=== PATIENT | male | born 1945 | race Caucasian/White ===

== ENCOUNTER → 2017-09-16 08:32 | Outpatient (CLI) | payer MEDICARE, OTHER, SELFPAY ==
--- NOTE | 2017-09-16 | DI.RAD.S_ITS ---
PROCEDURE: XR KNEE RT 3V INDICATIONS: PAIN IN RIGHT KNEES TECHNIQUE: 3 views of the knee were acquired. COMPARISON: None. FINDINGS: Bones: No fractures or dislocations. No suspicious bony lesions. Right knee arthroplasty is present. Hardware is intact without fracture or loosening. Soft tissues: Trace joint effusion. No suspicious soft tissue calcifications. IMPRESSION: No acute osseous abnormality. Short interval imaging followup is recommended if clinical concern persists. Dictated by: Renee Odonnell M.D. on 09/16/2017 at 9:43 Approved by: Renee Odonnell M.D. on 09/16/2017 at 9:45
== END ==
PROVIDERS: Family Provider Internal Medicine; PCP Internal Medicine; Visit Provider Student in an Organized Health Care Education/Training Program
DX: M25.561 Pain in right knee (principal)
CPT/HCPCS: 73562

== ENCOUNTER → 2018-01-30 08:24 | Outpatient (CLI) | payer MEDICARE, OTHER, SELFPAY ==
[2018-01-30 09:24] LABS: Add Manual Diff / Slide Review NO; Basophils Percent Auto 0.4 % (0-2); Eosinophils Percent Auto 2.9 % (2-4); Hemoglobin 15.9 g/dL (13.5-17.5); Lymphocytes Percent Auto 15.8 % (25-40); Mean Corpuscular HGB Conc 33.9 % (30-36); Mean Corpuscular Hemoglobin 31.2 PG (26-34); Mean Corpuscular Volume 91.9 fL (80-100); Neutrophils Absolute Auto 4200 /uL (3000-5900); Neutrophils Percent Auto 71.9 % (50-75); Platelet Count 242 X10^3/uL (150-400); Red Blood Cell Count 5.11 X10^6/uL (4.5-5.9); Red Cell Distribution Width 12.5 % (11.6-14.8); White Blood Cell Count 5.9 X10^3/uL (4.5-11.0)
[2018-01-30 09:53] LABS: Alanine Aminotransferase 32 IU/L (21-72); Albumin 4.2 g/dL (3.5-5.0); Albumin Globulin Ratio 1.6 (1.0-2.8); Alkaline Phosphatase 71 U/L (38-126); Aspartate Aminotransferase 26 IU/L (17-59); Bilirubin Total 0.7 mg/dL (0.2-1.3); Blood Urea Nitrogen 15 mg/dL (9-20); Calcium 9.3 mg/dL (8.4-10.2); Carbon Dioxide 30 mmol/L (22-32); Chloride 104 mmol/L (98-107); Cholesterol 143 mg/dL (140-199); Estimated Glomerular Filt Rate > 60.0 mL/min (>60); Globulin 2.6 g/dL (1.7-4.1); Glucose 84 mg/dL (80-110); HDL Cholesterol 41 mg/dL (40-60); HEMOLYSIS < 15 (0-50); LDL Cholesterol Calculated 81 mg/dL (<100); Potassium 4.6 mmol/L (3.4-5.1); Sodium 144 mmol/L (137-145); Total Protein 6.8 g/dL (6.3-8.2); Triglycerides 105 mg/dL (35-150)
[2018-01-30 10:23] LABS: Prostate Specific Antigen Scrn 1.96 ng/mL (0.1-4.0)
== END ==
PROVIDERS: Family Provider Internal Medicine; PCP Internal Medicine; Visit Provider Internal Medicine
DX: Z00.00 Encounter for general adult medical examination without abnormal findings (principal); I10 Essential (primary) hypertension; E78.00 Pure hypercholesterolemia, unspecified
CPT/HCPCS: 36415; 80053; 80061; 85025; G0103

== ENCOUNTER → 2018-02-02 12:22 | Outpatient (CLI) | payer MEDICARE, OTHER, SELFPAY ==
--- NOTE | 2018-02-02 | DI.ECHO.S_ITS ---
[facility]---------+ [facility] +---------+ : : [address] : : : : [id number] : : : : Phone: [phone]+ Echocardiogram Report + + :Name: CECE DAMON Study Date: 02/02/2018 Height: 71 in : :[facility] Exam Location: [facility] Weight: 200 lb : : Gender: Male BSA: 2.1 m2 : :: 1945 Age: 72 yrs BP: 142/70 mmHg: :Reason For Study: MURMUR : : Performed By: Lukasz Umanzor : :Referring: BRIAN GONZALEZ : + + Interpretation Summary The left ventricle is normal in size. Left ventricular systolic function is normal without focal wall motion abnormalities. The ejection fraction is estimated to be 65-70%. Diastolic parameters suggest a relaxation abnormality of the left ventricle, consistent with probable normal filling pressures. The right ventricle is normal in size and function. The right ventricular systolic pressure is estimated to be at least 19 mmHg based on an estimated right atrial pressure of 3 mm Hg. The left atrium is moderately dilated. The right atrium is mildly dilated. There is moderate aortic stenosis. The peak aortic velocity is 3.64 m/sec. The calculated aortic valve area is 1.5 cm2. There is mild aortic regurgitation. There is no other significant valvular heart disease. The ascending aorta is mildly enlarged. Procedure: A two-dimensional transthoracic echocardiogram with color flow and Doppler was performed. The study quality was technically adequate. There is no prior echocardiogram noted for this patient. The patient was in normal sinus rhythm during the exam. Left Ventricle: The left ventricle is normal in size. Left ventricular wall thickness is mildly increased. Left ventricular systolic function is normal without focal wall motion abnormalities. The ejection fraction is estimated to be 65-70%. Diastolic parameters suggest a relaxation abnormality of the left ventricle, consistent with probable normal filling pressures. Right Ventricle: The right ventricle is normal in size and function. Atria: The left atrium is moderately dilated. The right atrium is mildly dilated. The interatrial septum is intact with no evidence for an atrial septal defect. Mitral Valve: The mitral valve is normal in structure and function. There is trace mitral regurgitation. Aortic Valve: The aortic valve is trileaflet. The aortic valve is moderately calcified. Leaflet mobility is mild to moderately reduced. There is moderate aortic stenosis. The peak aortic velocity is 3.64 m/sec. The aortic valve mean gradient is 33.2 mmHg. The calculated aortic valve area is 1.5 cm2. There is mild aortic regurgitation. Tricuspid Valve: The tricuspid valve is normal in structure and function. There is trace tricuspid regurgitation. The right ventricular systolic pressure is estimated to be at least 19 mmHg based on an estimated right atrial pressure of 3 mm Hg. Pulmonic Valve: The pulmonic valve is normal in structure and function. There is trace pulmonic regurgitation. There is no other significant valvular heart disease. Great Vessels: The aortic root is normal size. The ascending aorta is mildly enlarged. The aortic arch is normal in size. The pulmonary artery is normal size. The IVC is of normal diameter and collapses greater than 50% with a sniff. This suggests a low right atrial pressure of 3 mm Hg. Pericardium/ Pleura There is no pericardial effusion. There is no pleural effusion. MMode/2D Measurements & Calculations LVIDd: 4.8 cm LVOT diam: 2.2 cm LVIDs: 2.7 cm Ao root diam: 3.2 cm FS: 43.0 % Aortic Jxn: 2.4 cm EPSS: 0.20 cm asc Aorta Diam: 3.5 cm IVSd: 0.99 cm Ao Arch Diam (Prox Trans): 3.2 cm LVPWd: 1.2 cm LV goins. diameter/BSA (cm/m^2): 2.3 LV sys. diameter/BSA (cm/m^2): 1.3 LA dimension: 3.7 cm RA long axis: 5.2 cm LA A2 area: 26.1 cm2 RA area: 21.0 cm2 LA A4 area: 24.6 cm2 RA vol: 71.8 ml LA length (vol): 6.0 cm RA : 34.1 ml/m2 LA vol: 90.2 ml IVC diam: 1.9 cm LA vol index: 42.8 ml/m2 THOMAS (plan): 1.8 cm2 Doppler Measurements & Calculations Ao V2 max: 364.2 cm/sec LVOT Max Silvano: 130.9 cm/sec Ao V2 mean: 276.2 cm/sec LV V1 max P.9 mmHg Ao max P.0 mmHg LV V1 VTI: 32.0 cm Ao mean P.2 mmHg THOMAS(I,D): 1.5 cm2 Ao V2 VTI: 83.7 cm THOMAS(V,D): 1.4 cm2 sev ratio: 0.38 THOMAS indexed to BSA (cm^2/m^2): 0.70 MV E max silvano: 74.1 cm/sec TR max silvano: 200.7 cm/sec MV A max silvano: 87.3 cm/sec TR max P.1 mmHg MV E/A: 0.85 PA V2 max: 99.9 cm/sec Med Peak E' Silvano: 5.9 cm/sec PA V2 mean: 74.1 cm/sec E/E' med: 12.6 PA mean P.4 mmHg Lat Peak E' Silvano: 7.5 cm/sec PA pr(Accel): 31.6 mmHg E/E' lat: 9.8 PA Accel Time: 0.10 sec E/e' average: 11.2 MV dec time: 0.19 sec Pulm A Revs Silvano: 24.6 cm/sec Reading Physician:TAD
== END ==
PROVIDERS: Family Provider Internal Medicine; PCP Internal Medicine; Visit Provider Internal Medicine
DX: I35.2 Nonrheumatic aortic (valve) stenosis with insufficiency (principal); R01.1 Cardiac murmur, unspecified
CPT/HCPCS: 93306

== ENCOUNTER → 2018-03-08 10:32 | Outpatient (CLI) | payer MEDICARE, OTHER, SELFPAY ==
--- NOTE | 2018-03-09 12:05 | P.PCN_ITS ---
Cardiac Stress Test Report Referral & Results Date Patient Seen: 03/09/18 Requesting provider: Julio Vega Indication: Abnormal standard treadmill Rest ECG: Unremarkable Procedure Note: After both written and verbal informed consent the patient had an IV started by the diagnostic imaging RN and then was hooked up to the treadmill monitoring system. The patient was placed on the treadmill at 1 mile an hour with no elevation and was then injected with the Lin scan material. The Cardiolite was then immediately administered. The patient spent an additional 2-3 minutes on the treadmill before being returned to the [facility] in the supine position. Impression: Number response to infuse materials Please see perfusion imaging for details regarding possible ischemia Please note: Actual ECG tracings can be found in the PACS system.
--- NOTE | 2018-03-09 12:41 | DI.NM.S_ITS ---
DATE OF SERVICE: 03/08/2018 PROCEDURE: Pharmacological perfusion study. INDICATION: Exertional angina, abnormal exercise stress test, hypertension, hyperlipidemia, history of moderate aortic stenosis. RADIOPHARMACEUTICAL: 26.0 mCi technetium-99m Myoview IV was injected at stress, and 27.4 mCi technetium-99m Myoview IV was injected at rest. CARDIAC STRESS: Patient underwent IV Lexiscan perfusion study under the supervision of an attending staff. Patient remained hemodynamically stable. No significant symptoms. Baseline EKG revealed sinus rhythm. Stress EKG did not reveal any obvious inducible ischemic changes. No significant arrhythmias. RAW DATA: There was increased subdiaphragmatic activity. GATED STUDY: Resting LV ejection fraction 73%. Stress LV ejection fraction 71%. There appears to be hypokinesis involving inferior wall. During stress, TID ratio 1.01, which is within normal limits. Resting end-diastolic volume is 113 mL. Lung/heart ratio is 0.30, which is within normal limits. Patient's weight is 201 pounds. MYOCARDIAL PERFUSION SCAN: Stress supine, resting supine, and stress prone images were compared to each other. The resting supine images revealed small-to - moderate-sized mildly decreased perfusion of base-to-mid inferior wall. During stress supine and stress prone images, there was significant worsening of perfusion defect in the inferior wall as well as basal inferolateral wall. CONCLUSION: This is an abnormal myocardial perfusion study consistent with mjhtq-du-rjkcrayz-sized mild infarction of base-to-mid inferior wall with significant shy-infarct ischemia as well as ischemia extending into the distal inferior wall and basal inferolateral segment. Conveyed report to Dr. Angela who is covering Dr. Vega. Consider left heart catheterization. Parth Guaman - [employer]/fn/kv doc#: [id number]/job#: [id number] dd: 03/09/2018 12:29:00 dt: 03/09/2018 12:34:00 DICTATING /COPIES TO: Puja Martinez MD COPIES MNE: MAURA
== END ==
PROVIDERS: PCP Internal Medicine; Visit Provider Internal Medicine
DX: I25.89 Other forms of chronic ischemic heart disease (principal); I20.8 Other forms of angina pectoris; I35.0 Nonrheumatic aortic (valve) stenosis; R07.9 Chest pain, unspecified; I10 Essential (primary) hypertension; E78.5 Hyperlipidemia, unspecified; R94.39 Abnormal result of other cardiovascular function study
CPT/HCPCS: 78452; 93016; 93017; 93018; A9502; J2785

== ENCOUNTER → 2018-05-10 15:37 | Outpatient (CLI) | payer MEDICARE, OTHER, SELFPAY ==
[2018-05-10 16:58] LABS: Alanine Aminotransferase 35 IU/L (21-72); Albumin 4.2 g/dL (3.5-5.0); Albumin Globulin Ratio 1.6 (1.0-2.8); Alkaline Phosphatase 73 U/L (38-126); Aspartate Aminotransferase 27 IU/L (17-59); BUN Creatinine Ratio 19.1 (6-22); Bilirubin Total 0.3 mg/dL (0.2-1.3); Blood Urea Nitrogen 21 mg/dL (9-20); Calcium 9.5 mg/dL (8.4-10.2); Carbon Dioxide 25 mmol/L (22-32); Chloride 107 mmol/L (98-107); Estimated Glomerular Filt Rate > 60.0 mL/min (>60); Globulin 2.7 g/dL (1.7-4.1); Glucose 99 mg/dL (80-110); HEMOLYSIS < 15 (0-50); Potassium 4.7 mmol/L (3.4-5.1); Sodium 140 mmol/L (137-145); Total Protein 6.9 g/dL (6.3-8.2)
== END ==
PROVIDERS: PCP Internal Medicine; Visit Provider Nurse Practitioner
DX: R60.0 Localized edema (principal)
CPT/HCPCS: 36415; 80053

== ENCOUNTER 2018-07-16 14:00 | Outpatient (RCR) | payer MEDICARE, OTHER, SELFPAY | END 2018-07-24 07:26 | disposition home or self-care (01) | LOC: CAR 14:00 | PROVIDERS: PCP Internal Medicine; Visit Provider Internal Medicine | DX: Z95.1 Presence of aortocoronary bypass graft (principal) | CPT/HCPCS: 93798 ==

== ENCOUNTER → 2019-03-29 09:36 | Outpatient (CLI) | payer MEDICARE, OTHER, SELFPAY ==
[2019-03-29 12:33] LABS: Add Manual Diff / Slide Review NO; Basophils Absolute Auto 0 /uL (0-100); Basophils Percent Auto 0.5 % (0-2); Eosinophils Absolute Auto 300 /uL (0-450); Eosinophils Percent Auto 4.8 % (2-4); Hemoglobin 15.4 g/dL (13.5-17.5); Lymphocytes Absolute Auto 1100 /uL (1100-4500); Lymphocytes Percent Auto 17.2 % (25-40); Mean Corpuscular HGB Conc 34.2 % (30-36); Mean Corpuscular Hemoglobin 31.8 PG (26-34); Mean Corpuscular Volume 92.8 fL (80-100); Monocytes Absolute Auto 600 /uL (0-900); Monocytes Percent Auto 8.9 % (3-14); Neutrophils Absolute Auto 4400 /uL (1500-7000); Neutrophils Percent Auto 68.6 % (50-75); Platelet Count 220 X10^3/uL (150-400); Red Blood Cell Count 4.85 X10^6/uL (4.5-5.9); Red Cell Distribution Width 13.4 % (11.6-14.8); White Blood Cell Count 6.4 X10^3/uL (4.5-11.0)
[2019-03-29 13:33] LABS: Alanine Aminotransferase 47 IU/L (<50); Albumin 4.4 g/dL (3.5-5.0); Albumin Globulin Ratio 1.6 (1.0-2.8); Alkaline Phosphatase 78 U/L (38-126); Aspartate Aminotransferase 36 IU/L (17-59); Bilirubin Total 0.8 mg/dL (0.2-1.3); Blood Urea Nitrogen 16 mg/dL (9-20); Calcium 9.6 mg/dL (8.4-10.2); Carbon Dioxide 26 mmol/L (22-32); Chloride 105 mmol/L (98-107); Cholesterol 167 mg/dL (140-199); Estimated Glomerular Filt Rate > 60.0 mL/min (>60); Globulin 2.7 g/dL (1.7-4.1); Glucose 90 mg/dL (80-110); HDL Cholesterol 40 mg/dL (40-60); HEMOLYSIS < 15 (0-50); LDL Cholesterol Calculated 92 mg/dL (<100); Potassium 4.4 mmol/L (3.4-5.1); Sodium 141 mmol/L (137-145); Total Protein 7.1 g/dL (6.3-8.2); Triglycerides 177 mg/dL (35-150)
== END ==
PROVIDERS: PCP Internal Medicine; Visit Provider Internal Medicine
DX: N40.1 Benign prostatic hyperplasia with lower urinary tract symptoms (principal); I25.10 Atherosclerotic heart disease of native coronary artery without angina pectoris; E78.2 Mixed hyperlipidemia
CPT/HCPCS: 36415; 80053; 80061; 85025

== ENCOUNTER → 2019-10-17 07:45 | Outpatient (CLI) | payer MEDICARE, OTHER, SELFPAY ==
[2019-10-17 08:33] LABS: BUN Creatinine Ratio 14.4 (6-22); Blood Urea Nitrogen 15 mg/dL (9-20); Calcium 9.6 mg/dL (8.4-10.2); Carbon Dioxide 28 mmol/L (22-32); Chloride 107 mmol/L (98-107); Estimated Glomerular Filt Rate > 60.0 mL/min (>60); Glucose 94 mg/dL (80-110); HEMOLYSIS < 15 (0-50); Potassium 4.3 mmol/L (3.4-5.1); Sodium 139 mmol/L (137-145)
== END ==
PROVIDERS: PCP Internal Medicine; Referring Provider Internal Medicine; Visit Provider Internal Medicine
DX: I10 Essential (primary) hypertension (principal)
CPT/HCPCS: 36415; 80048

== ENCOUNTER → 2019-11-19 09:00 | Outpatient (CLI) | payer MEDICARE, OTHER, SELFPAY ==
[2019-11-19 10:25] LABS: Cholesterol 100 mg/dL (140-199); HDL Cholesterol 30 mg/dL (40-60); LDL Cholesterol Calculated 57 mg/dL (<100); Triglycerides 65 mg/dL (35-150)
== END ==
PROVIDERS: PCP Internal Medicine; Referring Provider Internal Medicine Cardiovascular Disease; Visit Provider Internal Medicine Cardiovascular Disease
DX: E78.5 Hyperlipidemia, unspecified (principal)
CPT/HCPCS: 36415; 80061

== ENCOUNTER → 2020-03-27 15:59 | Outpatient (CLI) | payer MEDICARE, OTHER, SELFPAY ==
[2020-03-27] MEDS: COVID-19 VACC #1, MRNA(MOD) 100 MCG/0.5 ML VIAL IM (16:33)
== END ==
PROVIDERS: PCP Internal Medicine; Visit Provider Internal Medicine
DX: Z23 Encounter for immunization (principal)
CPT/HCPCS: 0011A; 91301

== ENCOUNTER → 2020-04-24 08:43 | Outpatient (CLI) | payer MEDICARE, OTHER, SELFPAY ==
[2020-04-24] MEDS: COVID-19 VACC #2, MRNA(MOD) 100 MCG/0.5 ML VIAL IM (08:48)
== END ==
PROVIDERS: PCP Internal Medicine; Visit Provider Internal Medicine
DX: Z23 Encounter for immunization (principal)
CPT/HCPCS: 0012A; 91301

== ENCOUNTER → 2021-03-08 15:51 | Outpatient (CLI) | payer MEDICARE, OTHER, SELFPAY ==
[2021-03-08 17:06] LABS: COVID19 -Nasal RAPID Negative (Negative)
== END ==
PROVIDERS: PCP Internal Medicine; Referring Provider Nurse Practitioner Family; Visit Provider Nurse Practitioner Family
DX: Z20.822 Contact with and (suspected) exposure to COVID-19 (principal)
CPT/HCPCS: 87635

== ENCOUNTER → 2022-01-11 09:06 | Outpatient (CLI) | payer MEDICARE, OTHER, SELFPAY ==
--- NOTE | 2022-01-11 | DI.ECHO.S_ITS ---
[facility] +---------+ [facility] +---------+ : : [address] : : : : [id number] : : : : Phone: [phone]+ Echocardiogram Report + + :Name: CECE DAMON Study Date: 01/11/2022 Height: 71 in : :[facility] ReadingLocation: Weight: 191 lb : : Gender: Male BSA: 2.1 m2 : :: 1945 Age: 76 yrs BP: 137/71 mmHg: :Reason For Study: MURMUR : :Ordering Physician: MAXWELL, : :SELVIN Performed By: Citlalli Arreguin : :Referring: CONCHITA ARREOLA : + + Interpretation Summary The left ventricle is mildly dilated. LVEF 60 to 65% without any significant change from the previous study. The right ventricle is mildly dilated. The right ventricular systolic function is normal. There is moderate mitral regurgitation. Compared to the prior echo study, there has been an increase in the severity of mitral regurgitation. There is a bioprosthetic aortic valve. New findings. The prosthetic aortic valve is well-seated. The prosthetic aortic valve appears to open well. Ao V2 max: 251.3 cm/sec Ao mean P.9 mmHg There is mild to moderate tricuspid regurgitation. Compared to the prior echo exam, there has been an increase in TR severity. The right ventricular systolic pressure is estimated to be at least 28 mmHg based on an estimated right atrial pressure of 3 mm Hg. The IVC is of normal diameter and collapses greater than 50% with a sniff. This suggests a low right atrial pressure of 3 mm Hg. Mild atherosclerotic plaque(s) in the aortic arch. Procedure: A two-dimensional transthoracic echocardiogram with color flow and Doppler was performed. The study quality was technically adequate. Comparison is made with the echocardiogram of 02/02/2018. The patient was in sinus bradycardia with heart rates between 49-57 bpm during the exam. Left Ventricle: The left ventricle is mildly dilated. There is normal left ventricular wall thickness. There is no thrombus. The ejection fraction is estimated to be 60-65%. There are no focal wall motion abnormalities. MV E/A: 0.98 Med Peak E' Silvano: 6.1 cm/sec E/E' med: 16.2. Right Ventricle: The right ventricle is mildly dilated. The right ventricular systolic function is normal. Atria: The left atrium is moderately dilated. There has been no significant change since the previous study. The right atrium is mildly dilated. There has been no significant change since the previous study. There is no Doppler evidence for an interatrial shunt. Mitral Valve: There is mild mitral annular calcification. The mitral valve leaflets appear mildly thickened, but open well. There is moderate mitral regurgitation. Compared to the prior echo study, there has been an increase in the severity of mitral regurgitation. Aortic Valve: There is a bioprosthetic aortic valve. The prosthetic aortic valve is well-seated. The prosthetic aortic valve appears to open well. Ao V2 max: 251.3 cm/sec Ao mean P.9 mmHg. No aortic regurgitation is present. Tricuspid Valve: The tricuspid valve is normal. There is mild to moderate tricuspid regurgitation. The right ventricular systolic pressure is estimated to be at least 28 mmHg based on an estimated right atrial pressure of 3 mm Hg. Compared to the prior echo exam, there has been an increase in TR severity. Pulmonic Valve: The pulmonic valve leaflets are thin and pliable; valve motion is normal. There is trace pulmonic regurgitation. Great Vessels: The aortic root is normal size. The ascending aorta is at the upper limits of normal in size. Mild atherosclerotic plaque(s) in the aortic arch. The IVC is of normal diameter and collapses greater than 50% with a sniff. This suggests a low right atrial pressure of 3 mm Hg. Pericardium/ Pleura There is no pericardial effusion. There is an anterior echo-free space consistent with a fat pad. There is no pleural effusion. MMode/2D Measurements & Calculations LVIDd: 5.8 cm LVOT diam: 2.0 cm LVIDs: 3.2 cm Ao root diam: 3.0 cm FS: 44.2 % asc Aorta Diam: 3.6 cm IVSd: 0.68 cm Ao Arch Diam (Prox Trans): 3.0 cm LVPWd: 0.79 cm LV goins. diameter/BSA (cm/m^2): 2.8 LV sys. diameter/BSA (cm/m^2): 1.6 LA A2 area: 25.2 cm2 RA long axis: 6.2 cm LA A4 area: 24.1 cm2 RA area: 22.5 cm2 LA length (vol): 6.0 cm RA vol: 69.6 ml LA vol: 85.4 ml RA : 33.7 ml/m2 LA vol index: 41.3 ml/m2 IVC diam: 1.2 cm RVD1 (basal): 4.4 cm RVD2 (mid): 3.4 cm TAPSE: 1.9 cm Doppler Measurements & Calculations Ao V2 max: 251.3 cm/sec LVOT Max Silvano: 130.5 cm/sec Ao V2 mean: 172.7 cm/sec LV V1 max P.8 mmHg Ao max P.3 mmHg LV V1 VTI: 27.8 cm Ao mean P.9 mmHg THOMAS(I,D): 1.6 cm2 Ao V2 VTI: 52.4 cm THOMAS(V,D): 1.6 cm2 sev ratio: 0.53 THOMAS indexed to BSA (cm^2/m^2): 0.79 MV E max silvano: 98.6 cm/sec TR max silvano: 249.2 cm/sec MV A max silvano: 100.6 cm/sec TR max P.8 mmHg MV E/A: 0.98 PA V2 max: 119.9 cm/sec Med Peak E' Silvano: 6.1 cm/sec PA V2 mean: 85.0 cm/sec E/E' med: 16.2 PA mean P.2 mmHg Lat Peak E' Silvano: 6.3 cm/sec PA pr(Accel): 24.2 mmHg E/E' lat: 15.6 E/e' average: 15.9 MV dec time: 0.27 sec SV(LVOT): 85.8 ml Reading Physician:01:52 PM
== END ==
PROVIDERS: PCP Internal Medicine; Referring Provider Internal Medicine Cardiovascular Disease; Visit Provider Internal Medicine Cardiovascular Disease
DX: I08.1 Rheumatic disorders of both mitral and tricuspid valves (principal); I70.0 Atherosclerosis of aorta; R01.1 Cardiac murmur, unspecified; Z95.2 Presence of prosthetic heart valve
CPT/HCPCS: 93306

== ENCOUNTER → 2022-02-01 10:00 | Outpatient (CLI) | payer MEDICARE, OTHER, SELFPAY ==
--- NOTE | 2022-02-01 | DI.US.S_ITS ---
PROCEDURE: US THYROID INDICATIONS: LEFT NODULE TECHNIQUE: Real-time scanning was performed of the thyroid gland, with image documentation. COMPARISON: None. FINDINGS: Right: Thyroid lobe measures 3.6 x 1.6 x 1.8 cm, and is homogeneous in echotexture. Left: Thyroid lobe measures 5.1 x 2.0 x 2.6 cm, and is homogenous in echotexture. Isthmus: 1.1 mm thick. Nodule number: 1 Location: Left inferior Size: 2.5 x 2.0 x 1.9 cm. Composition: Solid Echogenicity: Hypoechoic Shape: wider than tall. Margins: Ill-defined Echogenic foci: Non Total points: 4 ACR TI-RADS category: 4 IMPRESSION: 1. A moderately suspicious thyroid nodule in the inferior pole of the left thyroid lobe. Recommend ultrasound-guided fine-needle aspiration biopsy. ACR TI-RADS definitions and recommendations: TI-RADS 1 (benign): 0 points. FNA not needed. TI-RADS 2 (not suspicious): 2 points. FNA not needed. TI-RADS 3 (mildly suspicious): 3 points. * FNA if 2.5 cm or larger, follow up if 1.5 cm or larger (at 1, 3, and 5 years). TI-RADS 4 (moderately suspicious): 4-6 points. * FNA if 1.5 cm or larger, follow up if 1 cm or larger (at 1, 2, 3, and 5 years). TI-RADS 5 (highly suspicious): 7 points or more. * FNA if 1 cm or larger, follow up if 0.5 cm or larger (every year for 5 years). Dictated by: Roland Vega M.D. on 02/01/2022 at 12:08 Approved by: Roland Vega M.D. on 02/01/2022 at 12:11
== END ==
PROVIDERS: PCP Internal Medicine; Referring Provider Internal Medicine; Visit Provider Internal Medicine
DX: E04.1 Nontoxic single thyroid nodule (principal)
CPT/HCPCS: 76536

== ENCOUNTER → 2022-03-09 12:16 | Outpatient (CLI) | payer MEDICARE, OTHER, SELFPAY ==
--- NOTE | 2022-03-09 | PATH_ITS ---
Note [facility] Accession Number: [id number] TESTS RESULT FLAG UNITS REF RANGE LAB Clinician Provided Cytology Information No. of containers..01 Other (Miscellaneous) No. of containers..00 Previously Prepared Cytology Slide Source: LEFT THYROID NODULE Clinician ICD10: E04.1 DIAGNOSIS: LEFT THYROID NODULE NEGATIVE FOR MALIGNANT CELLS. B[place]ES[place] CATEGORY II. SPECIMEN CONSISTS OF BENIGN FOLLICULAR CELLS, PRESENT MACROFOLLICLES AND SCATTERED MACROPHAGES, CONSISTENT WITH A BENIGN FOLLICULAR NODULE. Pathologist ICD10: E04.1 Signed out by: Shanell Pereira MD, Pathologist NPI- [id number] Performed by: Matthew Reddy, Bowl Topper ([facility]) Gross description: 30 CC, PINK, HAZY RECEIVED IN CYTOLYT WHITE CAP CONTAINER RECEIVED 6 FIXED SLIDES IN 2 GREEN CAP COFFINS RECEIVED 4 FIXED SLIDES IN PINK CAP COFFIN RECEIVED 10 STAINED SLIDES IN 3 SLIDE HOLDERS 1 RNA VIAL /RZA 03/10/2022 0846 Local FLAG LEGEND: L-Low Normal,H-High Normal,LL-Alert Low,HH-Alert High <-Panic Low,>-Panic High,A-Abnormal,AA-Critical Abnormal Performed at: 01 =[facility] [address] [place] [address], [place] [address] Glen Mckee MD, Specimen Comment: A courtesy copy of this report has been sent to [phone] Performed at: 01 [facility] [address] [address], [place], [place] [id number] MD Glen Mckee MD Phone: [phone]
--- NOTE | 2022-03-09 12:19 | DI.US.S_ITS ---
PROCEDURE: US FINE NEEDLE ASPIRATION INDICATIONS: THYROID NODULE TECHNIQUE: The indications, alternatives, benefits, risks, and complications of the procedure were explained to the patient. Written informed consent was obtained and placed in the chart. The thyroid region was examined sonographically and a site was chosen for ultrasound guided percutaneous sampling. The skin was prepared and draped in the usual fashion, and anesthetized with 1% lidocaine infiltrated from the skin down to the thyroid gland. Multiple passes were then performed, with contents emptied into an appropriate pathology specimen container. A bandage was applied to the area of access at completion of the study. COMPARISON: [facility], US, US THYROID, 02/01/2022, 10:06. FINDINGS: Location(s) of lesion(s) sampled: Left lobe inferior [place]: 25 gauge hypodermic needles. Number of passes: 10 Medications: 1% lidocaine for local anaesthesia. Complications: None. IMPRESSION: Successful ultrasound-guided thyroid nodule fine needle aspiration, with cytology results pending. Please see chart below for management recommendations based on cytology results. [facility] ReportingRecommendationsNon-diagnostic* Repeat US-guided FNA, with on-site cytology evaluation if possible. * Repeated non-diagnostic nodules without high suspicion US features: close observation vs surgical consult. * Consider surgery if nodule has high suspicion US features, grows >20% in 2 dimensions on followup, or patient has clinical risk factors for malignancy. Benign* If nodule has high suspicion US features: repeat US and FNA within 12 months. * If nodule has low to intermediate suspicion US features: repeat US at 12-24 months. If nodule grows (20% increase in at least 2 dimensions, with minimal increase of 2 mm or >50% change in volume), or development of new suspicious US features, then repeat FNA or continue followup. * If nodule has very low suspicion US features: followup US at >24 months. Atypia of undetermined significance, follicular lesion of undetermined significanceRepeat FNA, molecular testing, followup US, or surgical consult.Follicular neoplasm, suspicious for follicular neoplasmSurgical consult; also consider molecular testing. Suspicious for malignancySurgical consult.MalignantSurgical consult. Dictated by: Yaya Contreras M.D. on 03/09/2022 at 15:17 Approved by: Yaya Contreras M.D. on 03/09/2022 at 15:21
== END ==
PROVIDERS: PCP Internal Medicine; Referring Provider Internal Medicine; Visit Provider Internal Medicine
DX: E04.1 Nontoxic single thyroid nodule (principal)
CPT/HCPCS: 10005

== ENCOUNTER 2022-09-07 11:41 | Day surgery (SDC) | payer MEDICARE, OTHER, SELFPAY ==
[2022-09-07 12:00] VITALS: BP 143/73; PULSE 65; RESP 16; TEMP 35.8; O2SAT 98; BMI 28.3
[2022-09-07] MEDS: LACTATED RINGERS 1,000 ML 125 ML IV (12:14)
--- NOTE | 2022-09-07 13:36 | P.HP_ITS ---
History of Present Illness History of Present Illness Date Patient Seen: 09/07/22 Chief complaint: Colonoscopy Narrative: Screening colonoscopy with follow-up at a 10 year interval [facility] Surgical History (Updated 09/07/22 @ 12:00 by Mariano Yanez RN) H/O heart surgery History of total knee arthroplasty Hx of appendectomy Social History household members: spouse Smoking Status: Never smoker alcohol intake: current Meds Home Medications and Allergies Home Medications Medication Instructions Recorded Confirmed Type atorvastatin 40 mg tablet 40 mg PO HS ##0 02/17/17 09/07/22 History finasteride 5 mg tablet 5 mg PO QDAY ##0 02/17/17 09/07/22 History ibuprofen 800 mg tablet 800 mg PO TIDP PRN ##0 02/17/17 05/12/21 History multivitamin (Multiple Vitamins 1 tab PO QDAY ##0 02/17/17 05/12/21 History tablet) omega 4-hrh-caz-fish oil 1,000 mg 1,000 mg PO ##0 02/17/17 05/12/21 History (120 mg-180 mg) capsule (Fish Oil) tamsulosin 0.4 mg capsule (Flomax) 0.4 mg PO QDAY ##0 02/17/17 09/07/22 History metoprolol succinate 25 mg 25 mg PO DAILY 09/07/22 09/07/22 History tablet,extended release 24 hr Allergies Allergy/AdvReac Type Severity Reaction Status Date / Time No Known Allergies Allergy Uncoded 03/08/21 16:08 Exam Vital Signs (past 8 hours): - 09/07/22 12:00 Temperature 96.5 F L Pulse Rate 65 Respiratory Rate 16 Blood Pressure 143/73 H Pulse Oximetry 98 Narrative Exam Narrative: Oropharynx free of lesions Chest clear to auscultation percussion Cardiac exam reveals no S3 or murmur Assessment & Plan Assessment & Plan narrative: Screening colonoscopy. Risks, benefits, alternatives have been explained.
--- NOTE | 2022-09-07 13:37 | P.OP.COLON_ITS ---
Operative Date/Time/Diagnoses Date of procedure: 09/07/22 Pre-op diagnosis: See indication and findings Procedure & Clinicians Study performed: Colonoscopy Indications: Screening Surgeon: Suly Solis Procedure Notes Procedure in detail: After informed consent was obtained the patient was placed in left lateral d ecubitus position. The video colonoscope was placed in the rectum and slowly advanced cecum. Preparation was good. On slow withdrawal mucosa was carefully examined. The scope was removed. The patient tolerated procedure well. Blood loss none Complications none Sedation mac Findings 1. Normal colonoscopy to the cecum with the exception of scattered sigmoid diverticulosis This should be the patient's last colonoscopy.
[2022-09-07 14:03] VITALS: BP 86/63; PULSE 50; RESP 12; TEMP 36.4; O2SAT 98
[2022-09-07 14:08] VITALS: BP 81/58; PULSE 48; RESP 10; TEMP 36.4; O2SAT 98
[2022-09-07 14:13] VITALS: BP 87/63; PULSE 47; RESP 11; TEMP 36.4; O2SAT 99
[2022-09-07 14:19] VITALS: BP 95/56; PULSE 57; RESP 10; TEMP 36.4; O2SAT 100
[2022-09-07 14:30] VITALS: BP 111/65; PULSE 62; RESP 14; TEMP 36.4; O2SAT 100
== END 2022-09-07 14:38 | disposition home or self-care (01) ==
PROVIDERS: PCP Physician Assistant; Referring Provider Internal Medicine Gastroenterology; Visit Provider Internal Medicine Gastroenterology
PROC: 0DJD8ZZ Inspection of Lower Intestinal Tract, Via Natural or Artificial Opening Endoscopic (ICD-10-PCS; CPT 45378; principal; 2022-09-07 13:00)
DX: Z12.11 Encounter for screening for malignant neoplasm of colon (principal)
CPT/HCPCS: G0121; J2704

== ENCOUNTER → 2023-04-03 09:46 | Outpatient (CLI) | payer MEDICARE, OTHER, SELFPAY ==
--- NOTE | 2023-04-03 09:50 | DI.NM.S_ITS ---
PROCEDURE: NM GLADIS PERF SPECT REST & STR Rest and exercise myocardial perfusion SPECT with gated imaging and ejection fraction RADIOPHARMACEUTICAL: 26.1 mCi Tc-99m sestamibi IV at rest and 27.5 mCi Tc-99m sestamibi IV at peak exercise. A 0-dbs-[id number] was performed. INDICATIONS: CAD INVOLVING CABG TECHNIQUE: Radiopharmaceutical was injected at peak stress test, and also at rest. SPECT images were obtained. SPECT myocardial perfusion images were displayed in short axis, horizontal long axis, and vertical long axis views. Gated images were reviewed using [employer] software. COMPARISON: None. CARDIAC STRESS: A standard Rudy treadmill exercise tolerance test was performed by the patient under the supervision of an attending staff. The patient exercised for 6 minutes and 0 seconds; 6.9 METS; functional aerobic impairment (MADHU) is -3%. Hemodynamic data: There is normal blood pressure and heart rate response to exercise stress. Patient achieved 88% of maximum predicted heart rate at peak exercise. Maximum blood pressure 180/76. Symptoms: Patient denied chest pain during exercise. EKG: Exercise ECG demonstrated sinus tachycardia with [address] segment depressions leads II, V4 to V6; no ectopy. FINDINGS: Raw data: There is good myocardial labeling by radiotracer. No significant motion artifacts. Waez-ca-wsvtf ratio 0.32 (normal is less than 0.38 for sestamibi tracer, and less than 0.50 for thallium tracer). Left ventricle function: Gated images demonstrate normal left ventricle wall thickening. No segmental wall motion abnormality. No transient ischemic dilation; TID is 1.16 (normal less than 1.3). The left ventricle resting end-diastolic volume is 114 mL. Left ventricle stress ejection fraction is 74%; normal values are above 45%. Myocardial perfusion: There is normal distribution of activity in the left and right ventricular myocardium. No fixed or reversible perfusion defects. IMPRESSION: Low risk study. No evidence of exercise-induced ischemia on SPECT imaging. Abnormal exercise ECG likely false positive. Normal LV size and function. Normal hemodynamic response. Fair exercise capacity. Dictated by: Elle Ferguson D.O. on 04/04/2023 at 17:07 Approved by: Elle Ferguson D.O. on 04/04/2023 at 17:11
== END ==
PROVIDERS: PCP Physician Assistant; Referring Provider Nurse Practitioner; Visit Provider Nurse Practitioner
DX: I25.810 Atherosclerosis of coronary artery bypass graft(s) without angina pectoris (principal); Z95.1 Presence of aortocoronary bypass graft
CPT/HCPCS: 78452; 93017; A9502

== ENCOUNTER → 2023-04-04 06:59 | Outpatient (CLI) | payer MEDICARE, OTHER, SELFPAY ==
[2023-04-04 09:41] LABS: Alanine Aminotransferase 20 IU/L (<50); Albumin 4.2 g/dL (3.5-5.0); Albumin Globulin Ratio 1.6 (1.0-2.8); Alkaline Phosphatase 65 U/L (38-126); Aspartate Aminotransferase 26 IU/L (17-59); BUN Creatinine Ratio 18.4 (6-22); Blood Urea Nitrogen 21 mg/dL (9-20); Calcium 9.7 mg/dL (8.4-10.2); Carbon Dioxide 29 mmol/L (22-32); Chloride 103 mmol/L (98-107); Cholesterol 122 mg/dL (140-199); Estimated Glomerular Filt Rate > 60 mL/min (>60); Globulin 2.6 g/dL (1.7-4.1); Glucose 89 mg/dL (80-110); HDL Cholesterol 46 mg/dL (40-60); HEMOLYSIS < 15 (0-50); LDL Cholesterol Calculated 66 mg/dL (<100); Sodium 138 mmol/L (137-145); Total Protein 6.8 g/dL (6.3-8.2); Triglycerides 51 mg/dL (35-150)
== END ==
PROVIDERS: PCP Physician Assistant; Referring Provider Nurse Practitioner; Visit Provider Nurse Practitioner
DX: E78.5 Hyperlipidemia, unspecified (principal); I10 Essential (primary) hypertension
CPT/HCPCS: 36415; 80053; 80061

== ENCOUNTER → 2024-01-02 12:10 | Outpatient (CLI) | payer MEDICARE, OTHER, SELFPAY ==
--- NOTE | 2024-01-02 12:11 | DI.ECHO.S_ITS ---
[facility]---------+ [facility] : : [address] : : [place] : : [id number] : : Phone: [phone] Echocardiogram Report + + :Name: CECE DAMON Study Date: 01/02/2024 Height: 71 in : :Hospital ReadingLocation: Weight: 193 lb : : Gender: Male BSA: 2.1 m2 : :: 1945 Age: 78 yrs BP: 142/68 mmHg: :Reason For Study: ESSENTIAL HYPERTENSION : :Ordering Physician: ERIC, : :CHRIS Brambila Performed By: Citlalli Arreguin : :Referring: CHRIS REYES W : + + Interpretation Summary The left ventricle is normal in size and wall thickness. The left ventricular ejection fraction is normal. The ejection fraction is estimated to be 60-65%. The right ventricle is mildly dilated. Right ventricular systolic function is at the lower limits of normal. There is moderate mitral regurgitation. Compared to the prior echo study, there has been no change in the severity of mitral regurgitation. There is a bioprosthetic aortic valve. The prosthetic aortic valve is well-seated. The peak aortic velocity is 2.7 m/sec. The aortic valve mean gradient is 16 mmHg. The peak aortic velocity on the previous exam was 2.5 m/sec. There is no hemodynamically significant valvular aortic stenosis. There is moderate tricuspid regurgitation. Previously mild to moderate TR. The right ventricular systolic pressure is estimated to be at least 31 mmHg based on an estimated right atrial pressure of 3 mm Hg. Previously 28 mmHg. Mild atherosclerotic plaque(s) in the aortic arch. Procedure: A two-dimensional transthoracic echocardiogram with color flow and Doppler was performed. The study quality was technically adequate. Comparison is made with the echocardiogram of 01/11/2022. The patient was in sinus bradycardia with heart rates between 46-57 bpm during the exam. Left Ventricle: The left ventricle is normal in size and wall thickness. There is no thrombus. The ejection fraction is estimated to be 60-65%. The left ventricular ejection fraction is normal. There are no focal wall motion abnormalities. MV E/A: 1.1 Med Peak E' Silvano: 7.3 cm/sec E/E' med: 14.7. Right Ventricle: The right ventricle is mildly dilated. There has been no significant change since the previous study. Right ventricular systolic function is at the lower limits of normal. Atria: The left atrium is moderately dilated. There has been no significant change since the previous study. Right atrial size is normal. There is no Doppler evidence for an interatrial shunt. Mitral Valve: There is mild mitral annular calcification. The mitral valve leaflets appear mildly thickened, but open well. There is moderate mitral regurgitation. Compared to the prior echo study, there has been no change in the severity of mitral regurgitation. Aortic Valve: There is a bioprosthetic aortic valve. The prosthetic aortic valve is well-seated. The peak aortic velocity is 2.7 m/sec. The aortic valve mean gradient is 16 mmHg. The peak aortic velocity on the previous exam was 2.5 m/sec. There is no hemodynamically significant valvular aortic stenosis. No aortic regurgitation is present. Tricuspid Valve: There is tricuspid annular calcification. There is moderate tricuspid regurgitation. The right ventricular systolic pressure is estimated to be at least 31 mmHg based on an estimated right atrial pressure of 3 mm Hg. Pulmonic Valve: The pulmonic valve is not well seen, but is grossly normal. There is no pulmonic valvular regurgitation. Great Vessels: The aortic root is normal size. The dimensions of the ascending aorta are normal. Mild atherosclerotic plaque(s) in the aortic arch. The IVC is of normal diameter and collapses greater than 50% with a sniff. This suggests a low right atrial pressure of 3 mm Hg. Pericardium/ Pleura There is no pericardial effusion. There is no pleural effusion. MMode/2D Measurements & Calculations LVIDd: 4.8 cm LVOT diam: 2.0 cm LVIDs: 3.1 cm asc Aorta Diam: 3.4 cm FS: 35.6 % Ao Arch Diam (Prox Trans): 3.1 cm EPSS: 0.36 cm IVSd: 0.89 cm LVPWd: 1.00 cm LV goins. diameter/BSA (cm/m^2): 2.3 LV sys. diameter/BSA (cm/m^2): 1.5 LA A2 area: 26.0 cm2 RA long axis: 6.1 cm LA A4 area: 25.1 cm2 RA area: 21.3 cm2 LA length (vol): 6.0 cm RA vol: 63.0 ml LA vol: 92.0 ml RA : 30.3 ml/m2 LA vol index: 44.3 ml/m2 IVC diam: 1.5 cm RVD1 (basal): 4.2 cm TAPSE: 1.6 cm Doppler Measurements & Calculations Ao V2 max: 267.5 cm/sec LVOT Max Silvano: 118.0 cm/sec Ao V2 mean: 186.3 cm/sec LV V1 max P.6 mmHg Ao max P.6 mmHg LV V1 VTI: 25.6 cm Ao mean P.7 mmHg THOMAS(I,D): 1.4 cm2 Ao V2 VTI: 56.6 cm THOMAS(V,D): 1.4 cm2 sev ratio: 0.45 THOMAS indexed to BSA (cm^2/m^2): 0.67 MV E max silvano: 106.8 cm/sec TR max silvano: 266.0 cm/sec MV A max silvano: 98.6 cm/sec TR max P.3 mmHg MV E/A: 1.1 PA V2 max: 110.3 cm/sec Med Peak E' Silvano: 7.3 cm/sec PA V2 mean: 76.2 cm/sec E/E' med: 14.7 PA mean P.6 mmHg Lat Peak E' Silvano: 6.7 cm/sec PA pr(Accel): 36.2 mmHg E/E' lat: 16.0 E/e' average: 15.4 MV dec time: 0.26 sec SV(LVOT): 79.0 ml Reading Physician:04:23 PM
== END ==
LOC: ECHO 12:11
PROVIDERS: PCP Physician Assistant; Referring Provider Nurse Practitioner; Visit Provider Nurse Practitioner
DX: I70.0 Atherosclerosis of aorta (principal); I10 Essential (primary) hypertension; I08.1 Rheumatic disorders of both mitral and tricuspid valves; Z95.2 Presence of prosthetic heart valve
CPT/HCPCS: 93306

== ENCOUNTER → 2024-07-17 09:08 | Outpatient (CLI) | payer MEDICARE, OTHER, SELFPAY ==
[2024-07-17 10:38] LABS: Cholesterol 138 mg/dL (140-199); HDL Cholesterol 44 mg/dL (40-60); LDL Cholesterol Calculated 81 mg/dL (<100); Triglycerides 63 mg/dL (35-150)
== END ==
PROVIDERS: PCP Physician Assistant; Referring Provider Nurse Practitioner; Visit Provider Nurse Practitioner
DX: E78.5 Hyperlipidemia, unspecified (principal)
CPT/HCPCS: 36415; 80061